=== PATIENT | male | born 1950 ===

== ENCOUNTER 2024-05-05 09:18 | Observation (INO) ==
--- NOTE | 2024-03-27 15:27 | PAT Medication Instructions ---
Medication Instructions Date of Service March 27, 2024 Home Medications Testosterone Injection See Rx Instructions .Route .COMPLEX Vitamin A + D3 + K2 1 cap PO DAILY acetaminophen 500 mg tablet 1,000 mg PO Q6H PRN Pain cyproheptadine 4 mg tablet 4 mg PO BID ibuprofen 200 mg tablet 600 mg PO Q6H PRN Pain magnesium glycinate 1 cap PO BID [id number]-[id number]-wwsfvt 5 mg-zeaxanth 1 mg-bilberry 7.5 mg-herbal capsule (Macular Health Formula) 1 cap PO DAILY omega 8-xft-thp-fish oil 1,200 mg (144 mg-216 mg) capsule (Fish Oil) 1 cap PO BID omeprazole 40 mg capsule,delayed release 40 mg PO DAILY vitamin E 1 cap PO DAILY MEDICATION INSTRUCTIONS: Continue as directed Testosterone Injection See Rx Instructions .Route .COMPLEX ASK your surgeon for instructions ibuprofen 200 mg tablet 600 mg PO Q6H PRN Pain STOP taking 2 weeks before surgery bruhyqur-rcv-[id number] 5 mg-zeaxanth 1 mg-bilberry 7.5 mg-herbal capsule (Macular Health Formula) 1 cap PO DAILY omega 6-hod-tew-fish oil 1,200 mg (144 mg-216 mg) capsule (Fish Oil) 1 cap PO BID vitamin E 1 cap PO DAILY DO NOT take the morning of surgery Vitamin A + D3 + K2 1 cap PO DAILY magnesium glycinate 1 cap PO BID cyproheptadine 4 mg tablet 4 mg PO BID Take morning of surgery With a small sip of water, OTHERWISE NOTHING TO EAT OR DRINK AFTER MIDNIGHT: omeprazole 40 mg capsule,delayed release 40 mg PO DAILY acetaminophen 500 mg tablet 1,000 mg PO Q6H PRN Pain Take evening before surgery magnesium glycinate 1 cap PO BID acetaminophen 500 mg tablet 1,000 mg PO Q6H PRN Pain cyproheptadine 4 mg tablet 4 mg PO BID Other Notes If you have any questions please call us at [phone] or [phone] or [phone] or [phone]
--- NOTE | 2024-04-07 13:24 | Anesthesiology Consultation ---
Date of Service April 07, 2024 Assessment & Plan (1) Encounter for pre-operative examination: - PCP advised that patient was seen this week but prior to having labs to review so would require he have another appointment for this. I discussed case in detail with Dr. Hancock who advised patient does not require clearance at all for surgery as he will lose some blood during procedure. Patient and surgeon's office made aware. - PCP office visit 04/08/24: "...feeling well...recognized the need for weight loss...increase testosterone to 400 mg every 3 weeks. Use CPAP nightly..." - polycythemia, patient states has not needed to undergo therapeutic phlebotomy for several years-denies currently/recently following with hematology. Awaiting PCP response to optimization form, Dr. Miah Bautista. Surgeon's office made aware. Patient made aware, he noted that in past this resolved with consistent CPAP use-he was without unit for several months after machine broke awaiting insurance approval-he denied questions or concerns-states he will fo llow-up with his PCP. - Outpatient joint assessment: Patient is currently scheduled for inpatient pathway. If re-evaluated and patient/surgeon requests outpatient pathway, patient is acceptable candidate for outpatient joint program from anesthesia standpoint pending surgeon's office assessment of pt motivation/support/completion of same day joint program preop requirements. Chart Review Chart Review: Acceptable Risk for Surgery and Patient seen in Pre Admission Testing Teaching & Discussion Pre-Anesthesia Teaching/Discussion Notes: Instructed NPO after midnight before surgery, except medications with 15 cc of water. Medication instructions provided according to the PAT guidelines. History Surgery Operation Date: 05/05/24 10:00 Proposed Procedures p Right Total Knee Arthroplasty - Andi Milligan DO Height/Weight Height: 5 ft 10.5 in Weight: 125.1 kg Allergies Allergy/AdvReac Type Severity Reaction Status Date / Time amoxicillin Allergy Intermediate Hives Verified 03/26/24 15:01 Medications Home Medications Medication Instructions Recorded Confirmed Last Taken Testosterone Injection See Rx Instructions .Route .COMPLEX 03/26/24 03/26/24 03/18/24 Vitamin A + D3 + K2 1 cap PO DAILY 03/26/24 03/26/24 Unknown acetaminophen 500 mg tablet 1,000 mg PO Q6H PRN Pain 03/26/24 03/26/24 Unknown cyproheptadine 4 mg tablet 4 mg PO BID 03/26/24 03/26/24 Unknown ibuprofen 200 mg tablet 600 mg PO Q6H PRN Pain 03/26/24 03/26/24 Unknown magnesium glycinate 1 cap PO BID 03/26/24 03/26/24 Unknown kbctmhbv-jex-mkfiym 5 mg-zeaxanth 1 cap PO DAILY 03/26/24 03/26/24 Unknown 1 mg-bilberry 7.5 mg-herbal capsule ([employer] Health Formula) omega 8-fui-dmu-fish oil 1,200 mg 1 cap PO BID 03/26/24 03/26/24 Unknown (144 mg-216 mg) capsule (Fish Oil) omeprazole 40 mg capsule,delayed 40 mg PO DAILY 03/26/24 03/26/24 Unknown release vitamin E 1 cap PO DAILY 03/26/24 03/26/24 Unknown famotidine 20 mg tablet 20 mg PO DAILY PRN reflux 04/07/24 04/07/24 Unknown Additional Notes: Patient was instructed he can continue famotidine prn. Past Medical History Medical History (Updated 04/07/24 @ 13:39 by Dian Pablo PA-C) Acid reflux controlled, stable per pt Frequent headaches chronic, allergy related per pt History of adverse reaction to anesthesia "Spiked my blood pressure" per pt was during a left knee arthroscopy, notes was prior to treatment for sleep apnea Hx of Lyme disease (~2003) completed antibiotic tx, residual effects: myalgias, leg weakness and intermittent headaches-denies change or worsening Osteoarthritis of right knee Polycythemia PONV (postoperative nausea and vomiting) denies needing scop patch, states does well with IV pre-dosing Sleep apnea CPAP - "currently broke and waiting for a new machine" Vertigo resolved with PT per patient Patient denies h/o stroke, seizures, heart attack, heart failure, DM, HTN, blood clots/DVTs or blood transfusions. Exercise / Class Metabolic Activity II 4-5 Yardwork/Stairs/Walk up hill (denies chest discomfort or shortnesss of breath with one flight of stairs) Past Surgical History Surgical History History of arthroscopy of left knee x2 Meniscus Tear History of carpal tunnel release of both wrists Hx of cataract extraction Bilateral Hx of cholecystectomy Hx of colonoscopy Hx of esophagogastroduodenoscopy Hx of hernia repair Hx of shoulder surgery Right - "Narrowing of the nerve channels" Hx of wisdom tooth extraction Past Anesthesia History No Family Hx of Anesthesia Complications History of PONV History of PONV (denies needing scop patch, does well with IV predosing) and Hx of Motion Sickness Social History Smoking Status: Never smoker Do You Dip or Chew Tobacco: No Hx Alcohol Use: No Hx Substance Use: No substance use type: does not use Review of Systems Patient denies chest pain, shortness of breath, dyspnea on exertion, fever, c hills, cough, wheezing, or palpitations. Physical Exam Vital Signs Vitals BP 137/85 P 81 TEMP 98.2 SP02 98% on RA RESP 18 Physical Patient resting comfortably in chair in no acute distress, alert and oriented, responding appropriately throughout visit Full cervical extension range of motion without pain TMD 3.5 finger breadths Mallampati Score 3 Dentition: several implants, denies chipped or loose teeth, caps/crowns, or bridges Lungs: normal respiratory effort. Good air movement, clear throughout to auscultation, no adventitious breath sounds Cardiac: regular rate and rhythm, no murmurs noted Carotid arteries: negative bruit bilat Lab Results Anesthesia Preop Results Results Anesthesia Widget: WBC 6.90 K/ul (4.8-10.8) 04/07/24 Hgb 18.1 g/dl (14.0-18.0) H 04/07/24 Hct 52.2 % (42.0-52.0) H 04/07/24 Plt 174 K/uL (130-400) 04/07/24 Na 137 mmol/L (136-145) 04/07/24 K 4.3 mmol/L (3.5-5.1) 04/07/24 Cl 100 mmol/L (98-107) 04/07/24 CO2 30 mmol/L (21-32) 04/07/24 BUN 16 mg/dl (6-23) 04/07/24 Creat 0.77 mg/dl (0.6-1.4) 04/07/24 Glucose Level 188 mg/dl (70-99(Fasting)) H 04/07/24 PT 10.3 Seconds (9.0-12.0) 04/07/24 PTT 28 Seconds (21-31) 04/07/24 INR 0.9 (0.9-1.1) 04/07/24 Blood Type O Positive 04/07/24 Antibody Screen NEGATIVE 04/07/24 Testing Electrocardiogram Date: 04/07/24 NSR, rate 73 bpm Chest X-Ray Date: 04/07/24 No acute cardiopulmonary abnormalities identified.
--- NOTE | 2024-05-01 07:56 | History & Physical Report ---
Date of Service May 01, 2024 Assessment & Plan (1) Osteoarthritis of right knee: We will proceed with a right total knee arthroplasty. Postoperatively he will be started on aspirin for DVT prophylaxis and kept overnight in the hospital for postop medical management. He plans to have the hospital set up home health for discharge. History of Present Illness Chief Complaint: Osteoarthritis of the right knee. Primary Care Provider: David Upton is a pleasant 73-year-old male who has been dealing with chronic increasing bilateral knee pain. 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 He saw another provider. He has x-rays and an MRI of his right knee. The x-rays did not look too bad, but the MRI did show some medial compartmental arthritis and a complex medial meniscus tear. After failed conservative treatment, he has elected to proceed with a right total knee arthroplasty. Allergies Allergy/AdvReac Type Severity Reaction Status Date / Time amoxicillin Allergy Intermediate Hives Verified 03/26/24 15:01 Home Medications Medication Instructions Recorded Confirmed Type Testosterone Injection See Rx Instructions .Route .COMPLEX 03/26/24 03/26/24 History Vitamin A + D3 + K2 1 cap PO DAILY 03/26/24 03/26/24 History acetaminophen 500 mg tablet 1,000 mg PO Q6H PRN Pain 03/26/24 03/26/24 History cyproheptadine 4 mg tablet 4 mg PO BID 03/26/24 03/26/24 History ibuprofen 200 mg tablet 600 mg PO Q6H PRN Pain 03/26/24 03/26/24 History magnesium glycinate 1 cap PO BID 03/26/24 03/26/24 History ygbsnasy-mlj-bekslo 5 mg-zeaxanth 1 cap PO DAILY 03/26/24 03/26/24 History 1 mg-bilberry 7.5 mg-herbal capsule (Macular Health Formula) omega 0-hxk-uvy-fish oil 1,200 mg 1 cap PO BID 03/26/24 03/26/24 History (144 mg-216 mg) capsule (Fish Oil) omeprazole 40 mg capsule,delayed 40 mg PO DAILY 03/26/24 03/26/24 History release vitamin E 1 cap PO DAILY 03/26/24 03/26/24 History famotidine 20 mg tablet 20 mg PO DAILY PRN reflux 04/07/24 04/07/24 History Past Med/Surg History Problem List Encounter for pre-operative examination Osteoarthritis of right knee Medical History Vertigo resolved with PT per patient Polycythemia History of adverse reaction to anesthesia "Spiked my blood pressure" per pt was during a left knee arthroscopy, notes was prior to treatment for sleep apnea PONV (postoperative nausea and vomiting) denies needing scop patch, states does well with IV pre-dosing Acid reflux controlled, stable per pt Hx of Lyme disease (~2003) completed antibiotic tx, residual effects: myalgias, leg weakness and intermittent headaches-denies change or worsening Frequent headaches chronic, allergy related per pt Sleep apnea CPAP - "currently broke and waiting for a new machine" Osteoarthritis of right knee Surgical History History of arthroscopy of left knee x2 Meniscus Tear History of carpal tunnel release of both wrists Hx of cataract extraction Bilateral Hx of wisdom tooth extraction Hx of shoulder surgery Right - "Narrowing of the nerve channels" Hx of cholecystectomy Hx of hernia repair Hx of esophagogastroduodenoscopy Hx of colonoscopy Social History Smoking Status: Never smoker Second Hand Exposure: No; Do You Dip or Chew Tobacco: No; Tobacco Cessation Education Requested by Patient: No Hx Alcohol Use: No Hx Substance Use: No Preferred Language: Italian Communication Ability: Effective Sales Ledger Clerk Required: No Beliefs That Will Affect Care: None Current Living Situation: Spouse Other Information That Helps Us Care for You: No Feels Safe at Home: Yes Safety Concerns: Feels Safe At This Time Assistive Devices: Cane, CPAP and Glasses Review of Systems All systems reviewed & are unremarkable except as noted in HPI & below. Physical Exam On physical exam of the right knee, he has good range of motion. He has pain of the distal medial femoral condyle and over the medial joint line. Constitutional WD/WN, vitals as above Eyes PERRL, conjunctivae normal, anicteric sclerae ENMT external ear and nose normal, oropharynx normal Neck trachea midline, no thyromegaly Respiratory normal respiratory effort Cardiovascular RRR, no murmur, no edema Gastrointestinal (Abdomen) normal bowel sounds, soft, nontender, no hepatosplenomegaly Psychiatric A+Ox3, euthymic affect Results & Data Results & Data Laboratory Results . Diagnostic Findings X-rays of the right knee show mild joint space narrowing. MRI of the right knee shows advanced medial compartmental arthritis and complex tearing of the medial meniscus.. . PG Care Time/CCT Total # of Minutes Spent Total Time Spent with Patient: Total time spent is greater than 50% in coordination of care (as documented) at patient's floor/unit and/or counseling patient: Coding Level of Care Code None Diagnoses Osteoarthritis of right knee M17.11
[~2024-05-05 09:18] MED LIST: ALLERGY Noted to ORDERED Medication SCH; ROPIVACAINE 0.5% 5 MG/ML 30 ML VIAL ONE; ceFAZolin 3000MG 3,000 MG/72.5 ML BAG IV SCH
[2024-05-05] MEDS: ACETAMINOPHEN 500 MG TAB PO SCH ×2 (10:26→21:36)
[2024-05-05] MEDS: GABAPENTIN 300 MG CAP PO SCH (10:27)
[2024-05-05] MEDS: FAMOTIDINE 20 MG TAB PO SCH (10:27)
[2024-05-05] MEDS: LR 60ML/HR IV SCH (10:48)
[2024-05-05] MEDS: dexAMETHasone**PF** 10 MG/ML VIAL IV SCH (10:48)
[2024-05-05] MEDS: LR 500ML BOLUS, THEN 15ML/HR IV SCH (10:48)
[2024-05-05] MEDS ORDERED: LIDOCAINE 2% 2 ML VIAL/AMP(20MG/ML) INFIL ONE (11:14)
[2024-05-05] MEDS ORDERED: PROPOFOL IV EMULSION 10 MG/ML 20 ML VIAL IV ONE (11:14)
[2024-05-05] MEDS ORDERED: MIDAZOLAM HCL 1 MG/ML 2ML VIAL ONE (11:15)
[2024-05-05] MEDS ORDERED: fentaNYL citrate PF 100 MCG/2 ML VIAL ONE (11:15)
--- NOTE | 2024-05-05 11:48 | History & Physical Bridge Note ---
Date of Service May 05, 2024 History & Physical Bridge Note I have examined the patient, reviewed the History & Physical and in the interval since the performance of the History & Physical I have noted the following changes of clinical significance: no changes noted
[2024-05-05] MEDS ORDERED: Nursing to Pharmacy Communication ONE (11:55)
[2024-05-05] MEDS ORDERED: KETOROLAC 30 MG/ML VIAL IV PRN (12:32)
[2024-05-05] MEDS ORDERED: HYDROmorphone INJ 1 MG/ML SYRINGE IV PRN (12:32)
[2024-05-05] MEDS ORDERED: ATROPINE SULFATE 0.1 MG/ML 10ML SYR IV PRN (12:32)
[2024-05-05] MEDS ORDERED: ePHEDrine sulfate 50 MG/ML AMP IV PRN (12:32)
[2024-05-05] MEDS ORDERED: ONDANSETRON INJ 2 MG/ML 2 ML VIAL IV PRN ×2 (12:32→15:58)
[2024-05-05] MEDS: TRANEXAMIC ACID 1,000 MG **IV Pre-op IV SCH (12:39)
[2024-05-05] MEDS: ceFAZolin 3000MG 3,000 MG/72.5 ML BAG IV SCH (12:54)
--- OUTSIDE RECORDS SUMMARY | 2024-05-05 12:55 | External Medical Summary | Summary of Care ---
Author Name Unknown Organization [facility] Address [address] [place] [address] Phone [phone] Care Team Providers Care [employer] Concierge Name Role Phone David Hand MD Primary Care Provider Reason for Visit * Reason Comments Syncope * Auth/Cert Specialty Diagnoses / Procedures Referred By Contac t Referred To Contact [facility] [address] [place] [address] Phone: [phone] [facility] ([facility]) [address] [place] [id number] Phone: tel: fax: Referral ID Status Reason Start Date Expiration Date Visits Re quested Visits Authorized [id number] Encounter Details Date Type Department Care Team (Late st Contact Info) Description 04/19/2024 5:53 PM EST - 04/19/2024 9:08 PM EST Emergency [facility] Emergency [facility] ([facility]) [address] [place] [id number] David Ch MD [address] [place] [address] Vasovagal syncope (Primary Dx); Screening for cardiovascular condition; New onset type 2 diabetes mellitus (HCC) Discharge Disposition: Home - Self Care Allergies Active Allergy Reactions Criticality Noted Date Comments Amoxicillin Rash 04/09/2018 Itching Bee Pollen Other (Please comment) 07/25/2018 Swelling of tongue, has EPIPEN Cat Dander 07/08/2009 Runny nose, itchy eyes Dust 07/08/2009 Runny nose. Eye itch's Levofloxacin Rash 04/09/2018 Mold 07/08/2009 Runny nose, itchy eyes documented as of this encounter (statuses as of 04/20/2024) Medications FREDY-D 12 HOUR 60-120 MG PO TB12 daily Active EPINEPHrine, anaphylaxis, (EPI-PEN) 0.3 MG/0.3ML SOAJ injection Inject 0.3 mg into a large muscle as needed for Anaphylaxis. 018 Active testosterone cypionate (DEPOTESTOSTE LEN CYPIONATE) 200 MG/ML injection INJECT 1ML INTRAMUSCULARLY EVERy 2 WEEKS 10 mL 019 Active Colestipol HCl 1 g Tablet TAKE TWO TABLETS BY MOUTH FOUR TIMES DAILY NEEDED FOR DIARRHEA 120 Tab 2 Active Aspirin (CHRISTINA ASPIRIN) 325 MG TBEC Take by mouth. Activ e fluticasone (FLONASE) 50 MCG/ACT nasal spray SPRAY 1 SPRAY INTRANASALLY 1 2 TIMES PER DAY IN EACH NOSTRIL Active Meloxicam 15 MG Tablet Active raNITIdine HCl 300 MG Tablet Take 1 Tab by mouth every evening. 90 Tab 2 020 Active metFORMIN HCl 500 MG Oral Tablet (Glucophage) Take 1 Tablet by mouth 2 times a day with morning and evening meals. Do not start before April 21, 2024. 30 Tablet Active metFORMIN HCl 500 MG Oral Tablet (Glucophage) Take 1 Tablet by mouth 2 times a day with morning and evening meals. 30 Tablet 024 2023 Discontinued Hospital, Clinic, or Other Facility Administered Medication Ordered Dose Route Frequency Start Date End Date Status testosterone cypionate (DEPOTESTOSTERONE CYPIONATE) 200 MG/ML inj 200 mgIndications:Testicular hypofunction 200 mg IM [id number] 12/18/2017 Active testosterone cypionate (DEPOTESTOSTERONE CYPIONATE) 200 MG/ML inj 200 mgIndications:Hypogonadism in male 200 mg IM [id number] 12/25/2017 Active documented as of this encounter (statuses as of 04/20/2024) Active Problems Problem Noted Date Diagnosed Date Osteoarthritis 12/12/2017 Hypogonadism in male 11/13/2017 Esophageal reflux 07/08/2009 Dyslipidemia, goal to be determined 07/08/2009 documented as of this encounter (statuses as of 04/20/2024) Resolved Problems Problem Noted Date Diagnosed Date Resolved Date B12 deficiency 11/13/2017 11/13/2017 Allergic rhinitis 07/08/2009 06/18/2018 documented as of this encounter (statuses as of 04/20/2024) Immunizations Name Administration Dates Next Due Pneumococcal Conjugate Vacc, 13 Valent (Prevnar) 03/13/2016 Pneumococcal Polysaccharide PPV23 (Pneumovax) 12/12/2017 Seasonal Influenza, PF, 6 M & above, IM , (FluLaval or Fluzone) 02/12/2018,03/13/2016 Seasonal Influenza, Quadriva lent, No Preserve, IM 02/03/2015,03/09/2014,03/12/2012,02/25,02/26/2007 TDAP (age 10 and older)(Boostrix) 12/12/2017 documented as of this encounter Social History Tobacco Use Types Packs/Day Years Used Date Smoking Tobacco: Never Smokeless Tobacco: Never Alcohol Use Standard Drinks/Week Comments No 0 (1 standard drink = 0.6 oz pur e alcohol) PHQ-2 Answer Date Recorded PHQ-2 Score -1 06/18/2018 Sex and Gender Information Value Date Recorded Sex Assigned at Not on file Legal Sex Male 5:43 AM EST Gender Identity Not on file Sexual Orientation Not on file documented as of this encounter Last Filed Vital Signs Vital Sign Reading Time Taken Comments Blood Pressure 158/74 04/19/2024 9:00 PM EST Pulse 74 04/19/2024 9:00 PM EST Temperature 35.6 C (96.1 F) 04/19/2024 5:52 PM ES T Respiratory Rate 13 04/19/2024 9:00 PM EST Oxygen Saturation 93% 04/19/2024 9:00 PM EST Inhaled Oxygen Concentration - - Weight - - Height - - Body Mass Index - - documented in this encounter Discharge Instructions * Discharge Instructions* Kathie Pena, DO - 04/19/2024 9:03 PM EST Do not start the metformin until 04/21/2024 because of the contrast received today for the CT scan.Keep yourself well hydrated. Eat smaller more frequent meals to avoid sudden highs/lows in blood sugar. Seek medical attention if you experience chest pain, irregular heart beat, persistent vomiting,or fainting. documented in this encounter ED Notes * Kimberlee Hutchins RN - 04/19/2024 5:57 PM EST Pt states that he had two syncopal episodes today, the last one being at the dinner table. Pt reports that during one of the syncopal episodes, he fell and hit his head. Pt c/o severe nausea currently and vertigo earlier today. documented in this encounter Miscellaneous Notes * Pt Handout (on AVS) - Kathie Pena DO - 04/19/2024 9:00 PM EST Images from the original note were not included. [id number] Diagnosing Syncope Syncope is when you suddenly faint or pass out (lose consciousness). It's caused by not getting enough blood flow to the brain. Syncope can have many causes. Some of them aren't serious, but others may be life-threatening. Your healthcare provider will ask you about your fainting episode and your past health. They'll also do an exam. You may need a number of tests to assess your symptoms. Health history and exam You may be asked about: Where and when you fainted How long you weren't awake and aware (unconscious) How you felt just before and right after you fainted How you feel when you do moderate to heavy exercise If you have a family history of heart disease or fainting If you have a heart or neurological problem What medicines you're taking If you drink alcohol If you use illegal drugs Your healthcare provider will examine you and may: Check your blood pressure while lying down, sitting, and standing Listen for any heart murmurs or abnormal heartbeats Listen and feel the pulses in your neck Examine your eyes, reflexes, and limb movement Tests Holter monitor You may need one of more of the following tests: Electrocardiogram (ECG). This test can help find a slow, fast, or irregular heartbeat. Holter monitoring. You wear a portable ECG monitor for 24 to 48 hours. It records your heartbeatand looks for any problems. Event monitoring. You wear a portable ECG monitor for several weeks. Like a Holter monitor, it records your heartbeat and looks for any problems. Implantable loop recorder. This is a small heart monitor that's inserted over the heart under the skin. It's used for long-term heart rhythm recordings, usually up to 3 to 4 years. Echocardiogram. This test takes pictures of your heart with ultrasound. It can show heart valve or heart function problems. It can also show damage from a heart attack. Electrophysiology studies (EPS). These help find weak, damaged, or overactive electrical pathways that make your heart beat too fast or slow. They can find the cause of a heart rate or rhythm problem. They can also help your healthcare provider decide how to treat it. Tilt table testing. This testing helps show if changes in your body position affect your heart rate and blood pressure. Carotid artery ultrasound. This test shows the blood flow through the arteries in the neck that supply oxygen and circulation to your brain. It can find any blockages in these arteries. MRI or CT scan of the neck and brain. These tests see if there is something else going on in the brain that is causing a loss of consciousness. They scan the blood flow and brain structures. Theyare done in a radiology department. Blood and other lab tests. These tests are used to find any problems in your body that may causesyncope. For example, low blood sugar can cause a loss of consciousness. It may be mistaken for syncope. Other wastes and toxins, and even dehydration, can affect brain function and consciousness. Electroencephalogram (EEG). If your healthcare provider thinks you may be having seizures instead of syncope, this test may be done. Electrodes are put on your scalp. They measure the activity of the brain. A neurologist who specializes in reading EEGs studies the results. You may need to see other specialists to fully assess the cause of your syncope. For instance, you may see a paper reclaiming machine operator or a neurologist.. Treatment will be based on the cause of your syncope. Ask your healthcare provider how you'll get the test results and what steps must be taken. One of the concerns with syncope is being injured if you faint. Finding a cause for syncope can help keep you safe from injury. Don't drive a car, use heavy machinery, or do activities that may result in injury if you were to faint. Ask your provider when it's safe to do these activities again. Last Reviewed Date: 2023 00:00:00 9698-6165 [employer]. All rights reserved. This information is not intended as a substitute for professional medical care. Always follow your healthcare professional's instructions. * Pt Handout (on AVS) - Kathie Pena DO - 04/19/2024 9:00 PM EST Images from the original note were not included. [id number] Managing Type 2 Diabetes Type 2 diabetes is a long-term (chronic) condition. Managing it may mean making some tough changes.Your healthcare team can help you. You'll need to balance your medicine with diet and activity. This will help you manage your type 2 diabetes. You will also need to check your blood sugar often. And work with your healthcare providerto prevent complications. Ask your team about a service called diabetes self-management education and support (DSMES). You will learn skills to help you better manage your diabetes and find support when you need it. This service may be given in a group setting or one-on-one with your team. It may also be available via telehealth. Take your medicine You may take pills or give yourself insulin shots for diabetes. Or you may use both. Take your medicines or give yourself insulin at the right times, This will help you control your blood sugar. Think about ways that will help you remember to take your medicines the right way every day. Ask your healthcare provider or team for ideas. You may only take pills for your diabetes now. But this may change. Over time, most people with type 2 diabetes also need insulin or other injections. Eat healthy A healthy diet helps control the amount of sugar in your blood. It also helps you stay at a healthyweight. Or it helps you lose weight, if you're overweight. Extra weight makes it harder to control diabetes. Your healthcare team will help you create a plan that works for you. You don't have to give up all the foods you like. Have meals and snacks with: Vegetables Fruits Lean meats or other healthy proteins Whole grains Low-fat or nonfat dairy products Replace sugary drinks (including fruit juice) with water or low-calorie, no calorie drinks wheneverpossible. Don't have foods with added sugar. Be physically active Being active helps lower your blood sugar. Activity helps your body use insulin to turn food into energy. It also helps you manage your weight: Ask your healthcare provider to help you to make an activity program that's right for you. Your program is based on your age, general health, and types of activity you enjoy. Start off slowly. But try to aim for at least 150 minutes of exercise or activity each week. Start with 30 minutes a day. Exercise in 10- minute blocks. Don?t let more than 2 days go by without being active. Check your blood sugar A regular part of your care may be to check your own blood sugar. Or you may only need to check your blood sugar from time to time. Your healthcare provider will tell you how to check your blood sugar at home. Checking it tells you if your blood sugar is in your target range. Having your blood sugars within the target range means that you are managing your diabetes well. If your blood sugar levels are too high or too low, your healthcare provider may suggest changes toyour diet or activity level. They may also adjust your medicine. Your healthcare provider may also tell you to check your blood sugar more often when you are sick. Take care of yourself When you have diabetes, you may be more likely to get other health problems. They include foot, eye, heart, nerve, and kidney problems. You can help prevent these problems by controlling your blood sugar. And by taking good care of yourself. Your healthcare provider, nurse, peer educator, and others can help you with the following: Checkups. You should have regular checkups with your healthcare provider. At those visits, you will have a physical exam that includes checking your feet. Your healthcare provider will also check your blood pressure and weight. Take your shoes off before your appointment starts to be sure your feet are checked. Be sure to bring the records of your blood sugar tests. Ask your healthcare providers if there are new or better ways to check on your blood sugars. Other exams. You'll also need eye, foot, and dental exams at least once each year or as advised. Lab tests. You will have blood and urine tests: o Your healthcare provider will check your hemoglobin A1C at least twice a year. This blood test shows how well you have been controlling your blood sugar over 2 to 3 months. The results help your healthcare provider manage your diabetes. o You will also have other lab tests. For example, to check for kidney problems and abnormal cholesterol levels. Smoking. If you smoke, you will need to quit. Smoking makes it more likely you will get complications from diabetes. Ask your healthcare provider about ways to quit. Also don't use e-cigarette, orvaping products. Vaccines. Get a yearly flu shot. And ask your healthcare provider about vaccines to prevent pneumonia, shingles, COVID-19, RSV, and hepatitis B. Stress and depression Most people have challenges throughout their lives. Living with diabetes can increase your stress. Feeling stressed or depressed can actually affect your blood sugar levels. Tell your healthcare provider if you are having trouble coping with diabetes. They can help or refer you to other healthcare providers or programs. To learn more Know where you can get help. You can try the following: Support. Ask family and friends to support your efforts to take care of yourself. Or look for a diabetes support group nearby or on the internet. Check the Community Overview link at diabetes.org/get-involved/community Counseling. Talk with a social media marketer, psychologist, psychiatrist, or other counselor. Information. Contact the [place] [employer] at www.diabetes.org or 127-961-8563. Another good source is the Association of Diabetes Care and Education Specialists at www.diabeteseducator.org/fgsxpj-qpux-mkavhmsz. Last Reviewed Date: 2021 00:00:00 2212-6141 [employer]. All rights reserved. This information is not intended as a substitute for professional medical care. Always follow your healthcare professional's instructions. documented in this encounter Plan of Treatment Pending Results Name Type Priority Associated Diagnoses Date /Time HEMOGLOBIN A1C Lab Add-on 04/19/2024 6:02 PM EST Scheduled Orders Name Type Priority Associated Diagnoses Orde r Schedule EKG EKG STAT Screening for cardiovascular condition Perform Now for 1 Occurrences starting 04/19/2024 until 04/19/2024 HEMOGLOBIN A1C Lab Add-on Perform No w for 1 Occurrences starting 04/19/2024 until 04/19/2024 Health Maintenance Due Date Last Done Comments Hepatitis C Screening 1969 Fecal Occult Blood Test 1996 Sigmoidoscopy 1996 Zoster Vaccines (1 of 2) 2001 Depression Screening 06/18/2019 06/18/2018 COVID-19 Vaccine ( season) 2023 Influenza Vaccine (FLU shot) (#1) 2023 02/12/2018, 03/13/2016, 02/03/2015, Additional history exists Lipid Panel 08/20/2026 08/20/2021, 11/2019, 12/06/2017 Cologuard 02/04/2027 02/05/2024, 11/2023, 01/29/2020 DTap/Tdap Vaccines (2 - Td or Tdap) 12/13/2027 12/12/2017 Colonoscopy 07/25/2028 07/25/2018 Colorectal Cancer Screening 07/25/2028 Pneumococcal Vaccine: 50+ Years Completed 12/12/2017, 03/13/2016 HPV (Gardasil) Vaccine Aged Out No lo nger eligible based on patient's age to complete this topic Hepatitis B Vaccine Aged Out No longe r eligible based on patient's age to complete this topic MENINGOCOCCAL (MENACTRA/MENVEO) Aged Out No longer eligible based on patient's age to complete this topic documented as of this encounter Medical Devices Not on filedocumented as of this encounter Procedures Procedure Name Priority Date/Time Associated Diagnosis Comments GLUCOSE METER, POINT OF CARE WALLY 04/19/2024 8:[address] PULMONARY EMBOLUS W CONTRAST STAT 04/19/2024 7:02 PM EST URINALYSIS, REFLEX TO CULTURE STAT 04/19/2024 6:39 PM EST URINALYSIS, REFLEX TO CULTURE (CUP ONLY) STAT 04/19/2024 6:39 PM EST URINALYSIS, REFLEX TO CULTURE (NOT FOR NEUTROPENIC PATIENTS) STAT 04/19/2024 6:[address] HEAD/BRAIN WO CONTRAST STAT 04/19/2024 6:29 PM EST XR CHEST 1 VIEW STAT 04/19/2024 6:29 PM EST RESPIRATORY PATHOGEN PANEL, PCR STAT 04/19/2024 6:04 PM EST LACTATE, WHOLE BLOOD WITH REFLEX IF ABNORMAL STAT 04/19/2024 6:02 PM EST DIFFERENTIAL, AUTOMATED STAT 04/19/2024 6:02 PM EST TROPONIN T, HIGH SENSITIVITY STAT 04/19/2024 6:02 PM EST BLOOD GAS, VENOUS STAT 04/19/2024 6:0 2 PM EST BNP (NT-PROBNP) STAT 04/19/2024 6:02 PM EST COMPREHENSIVE METABOLIC PANEL STAT 04/19/2024 6:02 PM EST CBC STAT 04/19/2024 6:02 PM EST PT INR STAT 04/19/2024 6:02 PM EST LIPASE STAT 04/19/2024 6:02 PM EST CBC STAT 04/19/2024 6:02 PM EST TSH STAT 04/19/2024 6:02 PM EST GLUCOSE METER, POINT OF CARE WALLY 04/19/2024 5:56 PM EST documented in this encounter Results * (ABNORMAL) GLUCOSE METER, POINT OF CARE (04/19/2024 8:24 PM EST) GLUCOSE - POCT 268(H) 70 - 120 mg/dL 04/19/2024 8:31 PM EST LABORATORY [facility] Blood Whole blood specimen / Unknown 04/19/2024 8:24 PM EST 04/19/2024 8:31 PM EST David Ch MD LAB POINT OF CAR E TEST DOCKED DEVICE UNSOLICITED RESULTS Final Result [facility]AT[facility] [id number] [place] [address] * CT PULMONARY EMBOLUS W CONTRAST (04/19/2024 7:02 PM EST) Anatomical Region Laterality Modality Chest, Cardio, Body Computed Greg ography 04/19/2024 6:50 PM EST Impressions 04/19/2024 8:14 PM EST IMPRESSION: 1. No pulmonary emboli are seen. 2. Incidental findings as described. THIS DOCUMENT HAS BEEN ELECTRONICALLY SIGNED BY JANNET MOORE MD Narrative 04/19/2024 8:14 PM EST PROCEDURE INFORMATION: Exam: CTA Chest With Contrast Exam date and time: 04/19/2024 6:50 PM Age: 74 years old Clinical indication: Shortness of breath; Additional info: Syncope, SOB; Pulmonary embolism; Wells score < 2; D-dimer not done; Perc positive (score >= 1) TECHNIQUE: Imaging protocol: Computed tomographic angiography of the chest with contrast. Exam focused on the arteries. 3D rendering (Not supervised by radiologist): MIP and/or 3D reconstructed images were created by the technologist. Radiation optimization: All CT scans at this facility use at least one of these dose optimization techniques: automated exposure control; mA and/or kV adjustment per patient size (includes targeted exams where dose is matched to clinical indication); or iterative reconstruction. Contrast material: ISOVUE 370; Contrast volume: 80 ml; Contrast route: INTRAVENOUS (IV); COMPARISON: DX XR CHEST 1 VIEW 04/19/2024 6:21 PM FINDINGS: Pulmonary arteries: No pulmonary emboli. Aorta: No aortic aneurysm. No aortic dissection. Lungs: Scattered microatelectasis. No airspace consolidation. Pleural spaces: No pneumothorax. No pleural effusion. Heart: No cardiomegaly. No pericardial effusion. Lymph nodes: No enlarged lymph nodes. Liver: The visualized liver is fatty. Gallbladder and biliary ducts: Cholecystectomy. Bones/joints: Chronic bony changes with no acute fracture. Mild thoracic spondylosis and partial ankylosis. Soft tissues: No suspicious lesions. Procedure Note Jannet Moore MD - 04/19/2024 PROCEDURE INFORMATION: Exam: CTA Chest With Contrast Exam date and time: 04/19/2024 6:50 PM Age: 74 years old Clinical indication: Shortness of breath; Additional info: Syncope, SOB; Pulmonary embolism; Wells score < 2; D-dimer not done; Perc positive(score >= 1) TECHNIQUE: Imaging protocol: Computed tomographic angiography of the chest withcontrast. Exam focused on the arteries. 3D rendering (Not supervised by radiologist): MIP and/or 3D reconstructed images were created by the technologist. Radiation optimization: All CT scans at this facility use at least one ofthese dose optimization techniques: automated exposure control; mA and/or kV adjustment per patient size (includes targeted exams where dose is matchedto clinical indication); or iterative reconstruction. Contrast material: ISOVUE 370; Contrast volume: 80 ml; Contrast route: INTRAVENOUS (IV); COMPARISON: DX XR CHEST 1 VIEW 04/19/2024 6:21 PM FINDINGS: Pulmonary arteries: No pulmonary emboli. Aorta: No aortic aneurysm. No aortic dissection. Lungs: Scattered microatelectasis. No airspace consolidation. Pleural spaces: No pneumothorax. No pleural effusion. Heart: No cardiomegaly. No pericardial effusion. Lymph nodes: No enlarged lymph nodes. Liver: The visualized liver is fatty. Gallbladder and biliary ducts: Cholecystectomy. Bones/joints: Chronic bony changes with no acute fracture. Mild thoracic spondylosis and partial ankylosis. Soft tissues: No suspicious lesions. IMPRESSION IMPRESSION: 1. No pulmonary emboli are seen. 2. Incidental findings as described. THIS DOCUMENT HAS BEEN ELECTRONICALLY SIGNED BY JANNET MOORE MD us David Ch MD RAD CT Final Re sult * (ABNORMAL) URINALYSIS, REFLEX TO CULTURE (04/19/2024 6:39 PM EST) Color, Urine Yellow Light Yellow, Yellow, Dark Yellow 04/19/2024 6:58 PM EST LAB[facility]ATORY [facility] Clarity, Urine Clear Clear 04/19/2024 6:58 PM EST LABORATORY [facility] Glucose, Urine >=1000(A) Negative mg/dL 04/19/2024 6:58 PM EST LAB[facility]AT[facility] Bilirubin, Urine Negative Negative 04/19/2024 6:58 PM EST [facility] Ketone, Urine Trace(A) Negative mg/dL 04/19/2024 6:58 PM EST LAB[facility]ATORY [facility] Specific [place], Urine 1.029 1.003 - 1.030 04/19/2024 6:58 PM EST LAB[facility] Blood, Urine Negative Negative 04/19/2024 6:58 PM EST LAB[facility]ATORY [facility] pH, Urine 7.0 5.0 - 7.5 Units 04/19/2024 6:58 PM EST LABORATORY [facility] Protein, Urine 100(A) Negative mg/dL 04/19/2024 6:58 PM EST LAB[facility]AT[facility] Urobilinogen, Urine 0.2 0.2, 1.0 mg/dL 04/19/2024 6:58 PM EST LAB[facility]AT[facility] Nitrite, Urine Negative Negative 04/19/2024 6:58 PM EST LABORATORY [facility] Esterase, Urine Negative Negative 04/19/2024 6:58 PM EST LAB[facility]ATORY [facility] RBC, Urine 0-2 0 - 2 /HPF 04/19/2024 6:58 PM EST LABORATORY [facility] WBC, Urine 0-2 0 - 2 /HPF 04/19/2024 6:58 PM EST LAB[facility]ATORY [facility] Bacteria, Urine 0-25 0 - 25 /HPF 04/19/2024 6:58 PM EST LAB[facility]ATORY [facility] Culture, Urine 04/19/2024 6:58 PM EST LAB[facility]AT[facility] Comment:Culture not indicate d by urinalysis results Urine Urine specimen obtained by clean catch procedure / Unknown Non-blood Collection / Unknown 04/19/2024 6:39 PM EST 04/19/2024 6:46 PM EST us David Ch MD LAB URINE ORDERABLES Fin al Result [facility] [place] [place] [id number] [place] [address] * URINALYSIS, REFLEX TO CULTURE (CUP ONLY) (04/19/2024 6:39 PM EST) Urinalysis, Reflex to Culture Specimen Specimen collected and received 04/19/2024 6:48 PM EST LAB[facility]ATORY [facility] Urine Urine specimen obtained by clean catch procedure / Unknown Non-blood Collection / Unknown 04/19/2024 6:39 PM EST 04/19/2024 6:46 PM EST David Ch MD LAB URINE ORDERABLES Fin al Result LABORATORY [place] [id number] [place] [address] * CT HEAD/BRAIN WO CONTRAST (04/19/2024 6:29 PM EST) Anatomical Region Laterality Modality Head Computed Tomogra phy 04/19/2024 6:17 PM EST Impressions 04/19/2024 7:42 PM EST IMPRESSION: Normal head CT. THIS DOCUMENT HAS BEEN ELECTRONICALLY SIGNED BY ARSENIO DOHERTY MD Narrative 04/19/2024 7:42 PM EST PROCEDURE INFORMATION: Exam: CT Head Without Contrast Exam date and time: 04/19/2024 6:17 PM Age: 74 years old Clinical indication: Syncope and collapse; Additional info: Syncope, hit head TECHNIQUE: Imaging protocol: Computed tomography of the head without contrast. Radiation optimization: All CT scans at this facility use at least one of these dose optimization techniques: automated exposure control; mA and/or kV adjustment per patient size (includes targeted exams where dose is matched to clinical indication); or iterative reconstruction. COMPARISON: No relevant prior studies available. FINDINGS: Brain: Normal. No intraxial or extraaxial hemorrhage. No infarct visible at this time. Unremarkable white matter. No mass effect. No significant involutional change. Cerebral ventricles: Normal. No ventriculomegaly or midline shift. Pituitary gland and sella: Normal. No enlargement. Paranasal sinuses: Visualized sinuses are unremarkable. No fluid levels or mucosal thickening. Mastoid air cells: Visualized mastoid air cells are well aerated. Bones: Unremarkable. No acute fracture. Soft tissues: Unremarkable. Vasculature: No significant atherosclerotic calcification. Procedure Note Arsenio Doherty MD - 04/19/2024 PROCEDURE INFORMATION: Exam: CT Head Without Contrast Exam date and time: 04/19/2024 6:17 PM Age: 74 years old Clinical indication: Syncope and collapse; Additional info: Syncope, hithead TECHNIQUE: Imaging protocol: Computed tomography of the head without contrast. Radiation optimization: All CT scans at this facility use at least one ofthese dose optimization techniques: automated exposure control; mA and/or kV adjustment per patient size (includes targeted exams where dose is matchedto clinical indication); or iterative reconstruction. COMPARISON: No relevant prior studies available. FINDINGS: Brain: Normal. No intraxial or extraaxial hemorrhage. No infarct visibleat this time. Unremarkable white matter. No mass effect. No significant involutional change. Cerebral ventricles: Normal. No ventriculomegaly or midline shift. Pituitary gland and sella: Normal. No enlargement. Paranasal sinuses: Visualized sinuses are unremarkable. No fluid levels or mucosal thickening. Mastoid air cells: Visualized mastoid air cells are well aerated. Bones: Unremarkable. No acute fracture. Soft tissues: Unremarkable. Vasculature: No significant atherosclerotic calcification. IMPRESSION IMPRESSION: Normal head CT. THIS DOCUMENT HAS BEEN ELECTRONICALLY SIGNED BY ARSENIO DOHERTY MD us David Ch MD RAD CT Final Re sult * XR CHEST 1 VIEW (04/19/2024 6:29 PM EST) Anatomical Region Laterality Modality Chest Computed Radiogr aphy 04/19/2024 6:21 PM EST Impressions 04/19/2024 8:11 PM EST IMPRESSION: Poor assessment of the left lung base on this portable view, favor technique related; otherwise lungs are clear. A lateral view of the chest could help to assess the left lung base if clinically indicated. THIS DOCUMENT HAS BEEN ELECTRONICALLY SIGNED BY JANNET MOORE MD Narrative 04/19/2024 8:11 PM EST PROCEDURE INFORMATION: Exam: XR Chest Exam date and time: 04/19/2024 6:21 PM Age: 74 years old Clinical indication: Other: Weakness; Additional info: Weakness, syncope TECHNIQUE: Imaging protocol: Radiologic exam of the chest. Views: 1 view. COMPARISON: DX XR RIBS UNILATERAL 2 VIEWS 01/22/2024 12:16 PM FINDINGS: Lungs: Poor assessment of the left lung base on this portable view; otherwise lungs are clear. Pleural spaces: No pleural effusion. No pneumothorax. Heart/Mediastinum: The cardiac silhouette is upper limits of normal. Bones/joints: No acute fracture. Procedure Note Jannet Moore MD - 04/19/2024 PROCEDURE INFORMATION: Exam: XR Chest Exam date and time: 04/19/2024 6:21 PM Age: 74 years old Clinical indication: Other: Weakness; Additional info: Weakness, syncope TECHNIQUE: Imaging protocol: Radiologic exam of the chest. Views: 1 view. COMPARISON: DX XR RIBS UNILATERAL 2 VIEWS 01/22/2024 12:16 PM FINDINGS: Lungs: Poor assessment of the left lung base on this portable view;otherwise lungs are clear. Pleural spaces: No pleural effusion. No pneumothorax. Heart/Mediastinum: The cardiac silhouette is upper limits of normal. Bones/joints: No acute fracture. IMPRESSION IMPRESSION: Poor assessment of the left lung base on this portable view, favortechnique related; otherwise lungs are clear. A lateral view of the chest could help to assess the left lung base if clinically indicated. THIS DOCUMENT HAS BEEN ELECTRONICALLY SIGNED BY JANNET MOORE MD David Ch MD RADIOLOGY ([facility]) Final Result * RESPIRATORY PATHOGEN PANEL, PCR (04/19/2024 6:04 PM EST) Adenovirus by PCR Negative Negative 024 7:02 PM EST LAB[facility] Coronavirus 229E by PCR Negative Negative 04/19/2024 7:02 PM EST [facility] Coronavirus HKU1 by PCR Negative Negative 04/19/2024 7:02 PM EST [facility] Coronavirus NL63 by PCR Negative Negative 04/19/2024 7:02 PM EST [facility] Coronavirus OC43 by PCR Negative Negative 04/19/2024 7:02 PM EST [facility] Coronavirus SARS-CoV-2 by PCR Negative Negative 04/19/2024 7:02 PM EST [facility] Human Metapneumovirus by PCR Negative Negative 04/19/2024 7:02 PM EST [facility] Rhinovirus/Enterovi lucina by PCR Negative Negative 04/19/2024 7:02 PM EST [facility] Influenza A Virus by PCR Negative Negative 04/19/2024 7:02 PM EST [facility] Influenza B Virus by PCR Negative Negative 04/19/2024 7:02 PM EST [facility] Parainfluenza Virus 1 by PCR Negative Negative 04/19/2024 7:02 PM EST [facility] Parainfluenza Virus 2 by PCR Negative Negative 04/19/2024 7:02 PM EST [facility] Parainfluenza Virus 3 by PCR Negative Negative 04/19/2024 7:02 PM EST [facility] Parainfluenza Virus 4 by PCR Negative Negative 04/19/2024 7:02 PM EST [facility] Respiratory Syncytial Virus by PCR Negative Negative 04/19/2024 7:02 PM EST [facility] Bordetella pertussis by PCR Negative Negative 04/19/2024 7:02 PM EST [facility] Chlamydia pneumoniae by PCR Negative Negative 04/19/2024 7:02 PM EST [facility] Mycoplasma pneumoniae by PCR Negative Negative 04/19/2024 7:02 PM EST [facility] Bordetella parapertussis by PCR Negative Negative 04/19/2024 7:02 PM EST [facility] Comment: The primers that detect Rhinovirus may cross react with some Enterorviruses. The validation of bronchial specimens, tracheal aspirates, and throats for this assay was developed and performance characteristics determined by [employer]. The validation of alternate specimen types has not been cleared or approved by the U.S. Food and Drug Administration (FDA). It has been determined that such clearance or approval is not necessary. Upper Respiratory Mid-turbinate nasal swab / Unknown Non-blood Collection / Unknown 04/19/2024 6:04 PM EST 04/19/2024 6:10 PM EST us David Ch MD LAB MICRO - GENERAL PHUONG COHEN Final Result LABORATORY [place] [id number] [place] [address] * DIFFERENTIAL, AUTOMATED (04/19/2024 6:02 PM EST) WBC 7.36 4.00 - 10.80 K/uL 04/19/2024 6:14 PM EST [facility] Neutrophils % 57.4 40.0 - 75.0 % 04/19/2024 6:14 PM EST [facility] Lymphocytes % 33.2 18.0 - 42.0 % 04/19/2024 6:14 PM EST [facility] Monocytes % 7.3 1.0 - 11.0 % 04/19/2024 6:14 PM EST [facility] Eosinophils % 1.8 0.0 - 6.0 % 04/19/2024 6:14 PM EST [facility] Basophils % 0.3 0.0 - 2.0 % 04/19/2024 6:14 PM EST [facility] Absolute Neutrophils 4.23 1.80 - 7.70 K/uL 04/19/2024 6:14 PM EST [facility] Absolute Lymphocytes 2.44 1.00 - 4.80 K/ul 04/19/2024 6:14 PM EST [facility] Absolute Monocytes 0.54 0.00 - 1.10 K/uL 04/19/2024 6:14 PM EST [facility] Absolute Eosinophils 0.13 0.00 - 0.70 K/uL 04/19/2024 6:14 PM EST [facility] Absolute Basophils 0.02 0.00 - 0.20 K/uL 04/19/2024 6:14 PM EST [facility] Blood Venous blood specimen / Unknown Venipuncture / Unknown 04/19/2024 6:02 PM EST 04/19/2024 6:10 PM EST David Ch MD LAB BLOOD ORDERABLES Fin al Result Performing Organization Address [facility]/State/[facility] Co de Phone Number LABORATORY [address] [address] * (ABNORMAL) CBC (04/19/2024 6:02 PM EST) [facility] WBC 7.36 4.00 - 10.80 K/uL 04/19/2024 6:14 PM EST [facility] RBC 5.09 4.50 - 5.25 M/uL 04/19/2024 6:14 PM EST [facility] HGB 17.7(H) 14.0 - 16.8 g/dL 04/19/2024 6:14 PM EST [facility] HCT 51.1(H) 40.0 - 48.4 % 04/19/2024 6:14 PM EST [facility] MCV 100.4 82.0 - 99.5 fL 04/19/2024 6:14 PM EST [facility] MCH 34.8 27.0 - 34.0 pg 04/19/2024 6:14 PM EST [facility] MCHC 34.6 32.0 - 36.0 g/dL 04/19/2024 6:14 PM EST [facility] RDW 12.5 11.5 - 15.5 % 04/19/2024 6:14 PM EST [facility] PLT 165 140 - 400 K/uL 04/19/2024 6:14 PM EST [facility] MPV 10.0 6.6 - 11.1 fL 04/19/2024 6:14 PM EST [facility] Blood Venous blood specimen / Unknown Venipuncture / Unknown 04/19/2024 6:02 PM EST 04/19/2024 6:10 PM EST David Ch MD LAB BLOOD ORDERABLES Fin al Result Performing Organization Address City/State/[facility] Co de Phone Number LABORATORY [place] [id number] [place] [address] * (ABNORMAL) BLOOD GAS, VENOUS (04/19/2024 6:02 PM EST) Temperature 37.0 C 04/19/2024 6:16 PM EST [facility] pH, Venous 7.374 7.320 - 7.430 units 04/19/2024 6:16 PM EST [facility] pCO2, Venous 48.6 40.0 - 60.0 mmHg 04/19/2024 6:16 PM EST [facility] pO2, Venous 55.6(H) 25.0 - 50.0 mmHg 04/19/2024 6:16 PM EST LAB[facility] Base Excess, Venous 1.9 -2.0 - 2.0 mmol/L 04/19/2024 6:16 PM EST [facility] HGB 18.3(H) 14.0 - 16.8 g/dL 04/19/2024 6:16 PM EST [facility] Oxyhemoglobin, Venous 88.1(H) 40.0 - 85.0 % total Hgb 04/19/2024 6:16 PM EST [facility] Carboxyhemoglobi n, Whole Blood 1.2 <=1.5 % total Hgb 04/19/2024 6:16 PM EST [facility] Comment:Smokers: 0-9.0 % Methemoglobin, Whole Blood 0.5 <=1.5 % total Hgb 04/19/2024 6:16 PM EST [facility] Reduced Hemoglobin, Venous 10.2 % total Hgb 04/19/2024 6:16 PM EST [facility] O2 Content, Venous 22.6(H) 7.0 - 18.0 %vol 04/19/2024 6:16 PM EST [facility] Bicarbonate, Whole Blood 28.3 23.0 - 31.0 mmol/L 04/19/2024 6:16 PM EST [facility] Blood Venous blood specimen / Unknown Venipuncture / Unknown 04/19/2024 6:02 PM EST 04/19/2024 6:10 PM EST us David Ch MD LAB BLOOD ORDERABLES Fin al Result Performing Organization Address City/[facility]/ZIP Co de Phone Number LABORATORY [address] [address] * TSH (04/19/2024 6:02 PM EST) Pathologist [facility] TSH 1.62 0.27 - 4.20 uIU/mL 04/19/2024 6:40 PM EST [facility] Blood Venous blood specimen / Unknown Venipuncture / Unknown 04/19/2024 6:02 PM EST 04/19/2024 6:10 PM EST David Ch MD LAB BLOOD ORDERABLES Fin al Result Performing Organization Address City/[facility]/ZIP Co de Phone Number LABORATORY [address] [address] * PT INR (04/19/2024 6:02 PM EST) Pathologist [facility] Prothrombin Time 12.3 11.6 - 15.2 seconds 04/19/2024 6:21 PM EST [facility] INR 0.9 0.8 - 1.2 04/19/2024 6:21 PM EST [facility] Blood Venous blood specimen / Unknown Venipuncture / Unknown 04/19/2024 6:02 PM EST 04/19/2024 6:10 PM EST Narrative [facility] - 04/19/2024 6:21 PM EST Warfarin Therapy INR: 2.0-3.0 conventional anticoagulation INR: 2.5-3.5 high intensity anticoagulation David Ch MD LAB BLOOD ORDERABLES Fin al Result Performing Organization Address City/[facility]/ZIP Co de Phone Number LABORATORY [address] [address] * LIPASE (04/19/2024 6:02 PM EST) Lipase 18 13 - 60 U/L 04/19/2024 6:34 PM EST [facility] Blood Venous blood specimen / Unknown Venipuncture / Unknown 04/19/2024 6:02 PM EST 04/19/2024 6:10 PM EST David Ch MD LAB BLOOD ORDERABLES Fin al Result Performing Organization Address [facility] Co de Phone Number LABORATORY [address] [address] * LACTATE, WHOLE BLOOD WITH REFLEX IF ABNORMAL (04/19/2024 6:02 PM EST) Lactate 1.9 0.4 - 2.0 mmol/L 04/19/2024 6:16 PM EST [facility] Blood Venous blood specimen / Unknown Venipuncture / Unknown 04/19/2024 6:02 PM EST 04/19/2024 6:10 PM EST David Ch MD LAB BLOOD ORDERABLES Fin al Result Performing Organization Address City/[facility]/ZIP Co de Phone Number LABORATORY [address] [address] * TROPONIN T, HIGH SENSITIVITY (04/19/2024 6:02 PM EST) [facility] Troponin T, High Sensitivity <6 <=22 ng/L 04/19/2024 6:34 PM EST [facility] Blood Venous blood specimen / Unknown Venipuncture / Unknown 04/19/2024 6:02 PM EST 04/19/2024 6:10 PM EST David Ch MD LAB BLOOD ORDERABLES Fin al Result Performing Organization Address [facility]/ZIP Co de Phone Number LABORATORY [address] [address] * BNP, NT-PRO (04/19/2024 6:02 PM EST) [facility] BNP, NT-Pro <50 <300 pg/mL 04/19/2024 6:40 PM EST [facility] Blood Venous blood specimen / Unknown Venipuncture / Unknown 04/19/2024 6:02 PM EST 04/19/2024 6:10 PM EST Narrative [facility] - 04/19/2024 6:40 PM EST Exclude Heart Failure: <300 pg/mL Diagnose Heart Failure: Age <50 yr: >450 pg/mL 50-75 yr: >900 pg/mL >75 yr: >1800 pg/mL GFR is 30-59 mL/min: >1200 pg/mL or Age-adjusted values GFR <30 mL/min: do not use, not reliable Prognostic threshold: 1000 pg/mL David Ch MD LAB BLOOD ORDERABLES Fin al Result Performing Organization Address City/[facility]/ZIP Co de Phone Number LABORATORY [address] [address] * (ABNORMAL) COMPREHENSIVE METABOLIC PANEL (04/19/2024 6:02 PM EST) [facility] BUN 16 6 - 20 mg/dL 04/19/2024 6:34 PM EST [facility] CREATININE 0.8 0.6 - 1.2 mg/dL 04/19/2024 6:34 PM EST [facility] EGFR >90 >=60 mL/min 04/19/2024 6:34 PM EST [facility] Comment:eGFR is calculated b ased on the CKD-EPI 2020 equation. SODIUM 133(L) 135 - 146 mmol/L 04/19/2024 6:34 PM EST [facility] POTASSIUM 4.0 3.5 - 5.1 mmol/L 04/19/2024 6:34 PM EST [facility] CHLORIDE 97(L) 98 - 107 mmol/L 04/19/2024 6:34 PM EST [facility] CO2 24 22 - 32 mmol/L 04/19/2024 6:34 PM EST [facility] ANION GAP 12 7 - 15 mmol/L 04/19/2024 6:34 PM EST [facility] GLUCOSE 312(H) 70 - 120 mg/dL 04/19/2024 6:34 PM EST [facility] Albumin 4.3 3.8 - 5.0 g/dL 04/19/2024 6:34 PM EST [facility] AST 19 10 - 50 U/L 04/19/2024 6:34 PM EST [facility] Alkaline Phosphatase 77 35 - 130 U/L 04/19/2024 6:34 PM EST [facility] Bilirubin, Total 0.2 <=1.2 mg/dL 04/19/2024 6:34 PM EST [facility] CALCIUM 9.1 8.4 - 10.2 mg/dL 04/19/2024 6:34 PM EST [facility] Protein 7.3 6.0 - 8.3 g/dL 04/19/2024 6:34 PM EST [facility] ALT 29 10 - 50 U/L 04/19/2024 6:34 PM EST [facility] Venous blood specimen / Unknown Venipuncture / Unknown 04/19/2024 6:02 PM EST 04/19/2024 6:10 PM EST us David Ch MD LAB BLOOD ORDERABLES Fin al Result [facility]ATORY [place] [address] [place] [address] * (ABNORMAL) GLUCOSE METER, POINT OF CARE (04/19/2024 5:56 PM EST) GLUCOSE - POCT 321(H) 70 - 120 mg/dL 04/19/2024 5:58 PM EST [facility] Blood Whole blood specimen / Unknown 04/19/2024 5:56 PM EST 04/19/2024 5:58 PM EST us No Physician Data Unknown LAB POINT OF C ARE TEST DOCKED DEVICE UNSOLICITED RESULTS Final Result LAB[facility]ATORY [place] [address] [place] [address] documented in this encounter Visit Diagnoses Diagnosis Vasovagal syncope- Primary Syncope and collapse Screening for cardiovascular condition Screening for other and unspecified cardiovascular conditions New onset type 2 diabetes mellitus (HCC) documented in this encounter Administered Medications Inactive Administered Medications - up to 3 most recent administrations Medication Order MAR Action Action Date Dose Rate Site Iopamidol (Isovue 370) inj 80 mL 80 mL, Intravenous, ONCE, On 04/19/24 at 1945, For 1 dose, Radiology Medication Routing (Non-IR) Given 04/19/2024 7:03 PM EST 80 mL NSS 0.9% 1,000 mL bolus infusion Peripheral IV, at 1,000 mL/hr Administer over 60 Minutes, Administer entire volume within 60 minutes or less., ONCE, 1 dose, On 04/19/24 at 1845 New Bag 04/19/2024 6:08 PM EST 1,000 mL 1000 mL/hr ondansetron (Zofran) inj 4 mg 4 mg, Intravenous, ONCE, On 04/19/24 at 1845, For 1 dose Given 04/19/2024 6:38 PM EST 4 mg Prochlorperazine (Compazine) inj 5 mg 5 mg, Intravenous, ONCE, On 04/19/24 at 2000, For 1 dose Given 04/19/2024 7:24 PM EST 5 mg documented in this encounter Active and Recently Administered Medications Times are shown in EST. Scheduled Medication Order 04/17/2024 04/18/2024 04/19/2024 Iopamidol (Isovue 370) inj 80 mL (COMPLETED) 80 mL, Intravenous, ONCE, On 04/19/24 at 1945, For 1 dose, Radiology Medication Routing (Non-IR) 1903 (Given - Provid er: Lydia Gottlieb, RT (R)) NSS 0.9% 1,000 mL bolus infusion (COMPLETED) Peripheral IV, at 1,000 mL/hr Administer over 60 Minutes, Administer entire volume within 60 minutes or less., ONCE, 1 dose, On 04/19/24 at 1845 1808 (New Bag - Prov ider: Ledy Mejía RN)1956 (Stopped - Provider: Ledy Mejía RN) ondansetron (Zofran) inj 4 mg (COMPLETED) 4 mg, Intravenous, ONCE, On 04/19/24 at 1845, For 1 dose 183 (Given - Provid er: Ledy Mejía RN) Prochlorperazine (Compazine) inj 5 mg (COMPLETED) 5 mg, Intravenous, ONCE, On 04/19/24 at 2000, For 1 dose 192 (Given - Provid er: Ledy Mejía RN) documented in this encounter Additional Health Concerns Infection Onset Date Last Indicated Resolved Time Respiratory Rule-Out 04/19/2024 04/19/2024 024 7:02 PM EST COVID-19 Rule-Out 04/19/2024 04/19/2024 04/19/2024 7:02 PM EST documented as of this encounter Care Teams Hotel [employer] Concierge Relationship Specialty Start Date End Date David Hand MD [address] [place] [address] PCP - General Internal Medicine 11/26/18 documented as of this encounter
--- OUTSIDE RECORDS SUMMARY | 2024-05-05 12:55 | External Medical Summary ---
Author Name Unknown Address Unknown Organization [id number]:LABORATORY [facility] - [address] [place] [id number] Laboratory Report Ordering Provider Test Date Status BRODERICK PITT 04/19/2024 20:24:58 Final Observation Date Value Abnormality Reference (Units ) Status Glucose Point of Care 04/19/2024 20:24:58 268 Above high normal 70-120 (mg/dL) Final Performing Location LABORATORY [facility] - [address] [facility] [address]
--- OUTSIDE RECORDS SUMMARY | 2024-05-05 12:56 | External Medical Summary ---
Author Name Unknown Address Unknown Organization K01:LABORATORY [facility] - [address] [facility] [address] Laboratory Report Ordering Provider Test Date Status MIRIAM SUAREZ 04/19/2024 18:02:31 Morro villalpando Observation Date Value Abnormality Reference (Units ) Status HbA1C 04/19/2024 18:02:31 8.5 Above high normal 4. 0-5.6 (%) Final The use of HbA1c to monitor glycemic status is based on normal hemoglobin and HbA composition. This test should not be used in patients with abnormal hemoglobin that affects the half life of the red blood cell or the in vivo glycation rates. Glucose, estimated average 04/19/2024 18:02:31 197 Above high normal <126 (mg/dL) Morro villalpando Performing Location LABORATORY [facility] - [address] [facility] [address]
--- OUTSIDE RECORDS SUMMARY | 2024-05-05 12:56 | External Medical Summary ---
Author Name Unknown Address Unknown Organization [id number]:LABORATORY [facility] - [address] [facility] [address] Laboratory Report Ordering Provider Test Date Status BRODERICK PITT 04/19/2024 18:02:31 Final Warfarin Therapy
INR: 2 .0-3.0 conventional anticoagulation
INR: 2.5- 3.5 high intensity anticoagulation Observation Date Value Abnormality Reference (Units ) Status PT 04/19/2024 18:02:31 12.3 11.6-15.2 (seconds) Final INR 04/19/2024 18:02:31 0.9 0.8-1.2 Final Performing Location LABORATORY [facility] - [address] [facility] [address]
--- OUTSIDE RECORDS SUMMARY | 2024-05-05 12:56 | External Medical Summary ---
Author Name Unknown Address Unknown Organization [id number]:LABORATORY [facility] - [address] [facility] [address] Laboratory Report Ordering Provider Test Date Status BRODERICK PITT 04/19/2024 18:02:31 Final Observation Date Value Abnormality Reference (Units ) Status Body temperature 04/19/2024 18:02:31 37.0 (C) Final pH of Venous blood 04/19/2024 18:02:31 7.374 7.320-7.430 (units) Final Carbon dioxide [Partial pressure] in Venous blood 04/19/2024 18:02:31 48.6 40.0-60.0 (mmHg) Final Oxygen [Partial pressure] in Venous blood 04/19/2024 18:02:31 55.6 Above high normal 25.0-50.0 (mmHg) Final Base excess, Capillary 04/19/2024 18:02:31 1.9 -2.0-2.0 (mmol/L) Final Hemoglobin [Mass/volume] in Blood by Oximetry 04/19/2024 18:02:31 18.3 Above high normal 14.0-16.8 (g/dL) Final Oxyhemoglobin, Venous (FO2HB) 04/19/2024 18:02:31 88.1 Above high normal 40.0-85.0 (% total Hgb) Final Carboxyhemoglobin 04/19/2024 18:02:31 1.2 <=1.5 (% total Hgb) Final Smokers: 0-9.0 % Methemoglobin 04/19/2024 18:02:31 0.5 <= 1.5 (% total Hgb) Final Deoxyhemoglobin/Hemoglo bin.total in Venous blood 04/19/2024 18:02:31 10.2 (% total Hgb) Final Oxygen content in Venous blood 04/19/2024 18:02:31 22.6 Above high normal 7.0-18.0 (%vol) Final Bicarbonate, Venous, POC (i-STAT) 04/19/2024 18:02:31 28.3 23.0-31.0 (mmol/L) Final Performing Location LABORATORY [facility] - [address] [facility] [address]
--- OUTSIDE RECORDS SUMMARY | 2024-05-05 12:56 | External Medical Summary ---
Author Name Unknown Address Unknown Organization K1G:LABORATORY [facility] - [address] [place] [id number] Laboratory Report Ordering Provider Test Date Status BRODERICK PITT 04/19/2024 18:02:31 Final Exclude Heart Failure: <300 pg/mL
Diagnose Heart Failure:
Age <50 yr: >450 pg/mL
50-75 yr: >900 pg/mL
>75 yr: >1800 pg/mL
GFR is 30-59 mL/min: >1200 pg/mL or Age- adjusted values
GFR <30 mL/min: do not use, not reliable

Prognostic threshold: 1000 pg/mL Observation Date Value Abnormality Reference (Units ) Status BNP, Pro-hormone 04/19/2024 18:02:31 <50 <30 0 (pg/mL) Final Performing Location LABORATORY [facility] - [address] [place] [phone]
--- OUTSIDE RECORDS SUMMARY | 2024-05-05 12:56 | External Medical Summary ---
Author Name Unknown Address Unknown Organization K1G:LABORATORY [facility] - [address] [place] [phone] Laboratory Report Ordering Provider Test Date Status BRODERICK PITT 04/19/2024 18:02:31 Final Observation Date Value Abnormality Reference (Units ) Status Lipase 04/19/2024 18:02:31 18 13-60 (U/L ) Final Performing Location LABORATORY [facility] - [facility] [phone]
--- OUTSIDE RECORDS SUMMARY | 2024-05-05 12:56 | External Medical Summary ---
Author Name Unknown Address Unknown Organization K1G:LABORATORY [facility] - [address] [place] [phone] Laboratory Report Ordering Provider Test Date Status BRODERICK PITT 04/19/2024 18:02:31 Final Observation Date Value Abnormality Reference (Units ) Status Troponin T 04/19/2024 18:02:31 <6 <=22 (ng/ L) Final Performing Location LABORATORY [facility] - [address] [place] [phone]
--- OUTSIDE RECORDS SUMMARY | 2024-05-05 12:56 | External Medical Summary ---
Author Name Unknown Address Unknown Organization K1G:LABORATORY [facility] - [address] [place] [phone] Laboratory Report Ordering Provider Test Date Status BRODERICK PITT 04/19/2024 18:02:31 Final Observation Date Value Abnormality Reference (Units ) Status SYNC LEUKOCYTES IN BLOOD BY AUTOMATED COUNT 04/19/2024 18:02:31 7.36 4.00-10.80 (K/uL) Final Segs 04/19/2024 18:02:31 57.4 40.0-75.0 (%) Final Lymphs % 04/19/2024 18:02:31 33.2 18.0-42.0 (%) Final Monos 04/19/2024 18:02:31 7.3 1.0-11.0 (%) Final Eosinophils 04/19/2024 18:02:31 1.8 0.0-6.0 (%) Final Basos 04/19/2024 18:02:31 0.3 0.0-2.0 (%) Final Absolute Segs 04/19/2024 18:02:31 4.23 1.80-7.70 (K/uL) Final Lymphs, absolute 04/19/2024 18:02:31 2.44 1.00-4.80 (K/ul) Final Monos, Abs 04/19/2024 18:02:31 0.54 0.00-1.10 (K/uL) Final Eos, Abs 04/19/2024 18:02:31 0.13 0.00-0.70 (K/uL) Final Basos, Abs 04/19/2024 18:02:31 0.02 0.00-0.20 (K/uL) Final Performing Location LABORATORY [facility] - [address] [facility] [phone]
--- OUTSIDE RECORDS SUMMARY | 2024-05-05 12:56 | External Medical Summary ---
Author Name Unknown Address Unknown Organization K1G:LABORATORY [facility] - [address] [place] [phone] Laboratory Report Ordering Provider Test Date Status NO,UNKNOWN 04/19/2024 17:56:39 Final Observation Date Value Abnormality Reference (Units ) Status Glucose Point of Care 04/19/2024 17:56:39 321 Above high normal 70-120 (mg/dL) Final Performing Location LABORATORY [facility] - [address] [facility] [address]
--- OUTSIDE RECORDS SUMMARY | 2024-05-05 12:56 | External Medical Summary ---
Author Name Unknown Address Unknown Organization K1G:LABORATORY [facility] - [address] [place] [phone] Laboratory Report Ordering Provider Test Date Status BRODERICK PITT 04/19/2024 18:02:31 Final Observation Date Value Abnormality Reference (Units ) Status Lactic Acid, Whole Blood 04/19/2024 18:02:31 1.9 0.4-2.0 (mmol/L) Final Performing Location LABORATORY [facility] - [address] [facility] [place] [phone]
--- OUTSIDE RECORDS SUMMARY | 2024-05-05 12:56 | External Medical Summary ---
Author Name Unknown Address Unknown Organization K1G:LABORATORY [facility] - [address] [place] [phone] Laboratory Report Ordering Provider Test Date Status BRODERICK PITT 04/19/2024 18:04:04 Final ADMITTED patient Observation Date Value Abnormality Reference (Units ) Status Adenovirus DNA [Presence] in Nasopharynx by DAVID with non-probe detection 04/19/2024 18:04:04 Negative Negative Final Human coronavirus 229E RNA [Presence] in Nasopharynx by DAVID with non-probe detection 04/19/2024 18:04:04 Negative Negative Final Human coronavirus HKU1 RNA [Presence] in Nasopharynx by DAVID with non-probe detection 04/19/2024 18:04:04 Negative Negative Final Human coronavirus NL63 RNA [Presence] in Nasopharynx by DAVID with non-probe detection 04/19/2024 18:04:04 Negative Negative Final Human coronavirus OC43 RNA [Presence] in Nasopharynx by DAVID with non-probe detection 04/19/2024 18:04:04 Negative Negative Final SARS-CoV-2 (COVID-19) RNA [Presence] in Nasopharynx by DAVID with non-probe detection 04/19/2024 18:04:04 Negative Negative Final Human metapneumovirus RNA [Presence] in Nasopharynx by DAVID with non-probe detection 04/19/2024 18:04:04 Negative Negative Final Rhinovirus+Enterovirus RNA [Presence] in Nasopharynx by DAVID with non-probe detection 04/19/2024 18:04:04 Negative Negative Final Influenza virus A RNA [Presence] in Nasopharynx by DAVID with non-probe detection 04/19/2024 18:04:04 Negative Negative Final Influenza virus B RNA [Presence] in Nasopharynx by DAVID with non-probe detection 04/19/2024 18:04:04 Negative Negative Final Parainfluenza virus 1 RNA [Presence] in Nasopharynx by DAVID with non-probe detection 04/19/2024 18:04:04 Negative Negative Final Parainfluenza virus 2 RNA [Presence] in Nasopharynx by DAVID with non-probe detection 04/19/2024 18:04:04 Negative Negative Final Parainfluenza virus 3 RNA [Presence] in Nasopharynx by DAVID with non-probe detection 04/19/2024 18:04:04 Negative Negative Final Parainfluenza virus 4 RNA [Presence] in Nasopharynx by DAVID with non-probe detection 04/19/2024 18:04:04 Negative Negative Final Respiratory syncytial virus RNA [Presence] in Nasopharynx by DAVID with non-probe detection 04/19/2024 18:04:04 Negative Negative Final Bordetella pertussis.pertussis toxin promoter region [Presence] in Nasopharynx by DAVID with non-probe detection 04/19/2024 18:04:04 Negative Negative Final Chlamydophila pneumoniae DNA [Presence] in Nasopharynx by DAVID with non-probe detection 04/19/2024 18:04:04 Negative Negative Final Mycoplasma pneumoniae DNA [Presence] in Nasopharynx by DAVID with non-probe detection 04/19/2024 18:04:04 Negative Negative Final Bordetella parapertussis [id number] DNA [Presence] in Nasopharynx by DAVID with non-probe detection 04/19/2024 18:04:04 Negative Negative Final The primers that detect Rhin ovirus may cross react with some Enterorviruses. The validation of bronchial specimens, tracheal aspirates, and throats for this assay was developed and performance characteristics determined by [employer]. The validation of alternate specimen types has not been cleared or approved by the U.S. Food and Drug Administration (FDA). It has been determined that such clearance or approval is not necessary. [facility] LABORATORY [facility] - [address] [facility] [phone]
--- OUTSIDE RECORDS SUMMARY | 2024-05-05 12:56 | External Medical Summary ---
Author Name Unknown Address Unknown Organization K1G:LABORATORY [facility] - [address] [facility] [phone] Laboratory Report Ordering Provider Test Date Status BRODERICK PITT 04/19/2024 18:02:31 Final Observation Date Value Abnormality Reference (Units ) Status BUN 04/19/2024 18:02:31 16 6-20 (mg/dL) Final Creatinine 04/19/2024 18:02:31 0.8 0.6-1.2 (mg/dL) Final Glomerular filtration rate/1.73 sq M.predicted [Volume Rate/Area] in Serum, Plasma or Blood by Creatinine-based formula (CKD-EPI) 04/19/2024 18:02:31 >90 >=60 (mL/min) Final eGFR is calculated based on the CKD-EPI 2020 equation. Sodium 04/19/2024 18:02:31 133 Below low normal 135 -146 (mmol/L) Final Potassium 04/19/2024 18:02:31 4.0 3.5-5.1 (m mol/L) Final Cl 04/19/2024 18:02:31 97 Below low normal 98- 107 (mmol/L) Final CO2 04/19/2024 18:02:31 24 22-32 (mmo l/L) Final Anion gap 04/19/2024 18:02:31 12 7-15 (mmol /L) Final Glucose 04/19/2024 18:02:31 312 Above high normal 70 -120 (mg/dL) Final Albumin 04/19/2024 18:02:31 4.3 3.8-5.0 (g /dL) Final AST (Aspartate aminotransferase) 04/19/2024 18:02:31 19 10-50 (U/L) Fin al Alk Phos 04/19/2024 18:02:31 77 35-130 (U/ L) Final Bilirubin, Total 04/19/2024 18:02:31 0.2 <=1 .2 (mg/dL) Final Calcium 04/19/2024 18:02:31 9.1 8.4-10.2 ( mg/dL) Final Protein 04/19/2024 18:02:31 7.3 6.0-8.3 (g /dL) Final ALT (Alanine aminotransferase) 04/19/2024 18:02:31 29 10-50 (U/L) Morro villalpando Performing Location LABORATORY [facility] - [address] [place] [phone]
--- OUTSIDE RECORDS SUMMARY | 2024-05-05 12:56 | External Medical Summary ---
Author Name Unknown Address Unknown Organization K1G:[facility] - [address] [facility] [phone] Laboratory Report Ordering Provider Test Date Status BRODERICK PITT 04/19/2024 18:39:44 Final Observation Date Value Abnormality Reference (Units ) Status Color of Urine by Auto 04/19/2024 18:39:44 Yellow Light Yellow, Yellow, Dark Yellow Final Clarity, Urine 04/19/2024 18:39:44 Clear Clear Final Glucose [Mass/volume] in Urine by Automated test strip 04/19/2024 18:39:44 >=1000 Abnormal Negative (mg/dL) Final Bilirubin.total [Presence] in Urine by Automated test strip 04/19/2024 18:39:44 Negative Negative Final Ketones [Mass/volume] in Urine by Automated test strip 04/19/2024 18:39:44 Trace Abnormal Negative (mg/dL) Final Specific gravity, Urine 04/19/2024 18:39:44 1.029 1.003-1.030 Final Hemoglobin [Presence] in Urine by Automated test strip 04/19/2024 18:39:44 Negative Negative Final pH, Urine 04/19/2024 18:39:44 7.0 5.0-7.5 (Units) Final Protein [Mass/volume] in Urine by Automated test strip 04/19/2024 18:39:44 100 Abnormal Negative (mg/dL) Final Urobilinogen [Mass/volume] in Urine by Automated test strip 04/19/2024 18:39:44 0.2 0.2, 1.0 (mg/dL) Final Nitrite [Presence] in Urine by Automated test strip 04/19/2024 18:39:44 Negative Negative Final Leukocyte esterase [Presence] in Urine by Automated test strip 04/19/2024 18:39:44 Negative Negative Final RBC, Urine 04/19/2024 18:39:44 0-2 0-2 (/HPF) Final WBC, Urine 04/19/2024 18:39:44 0-2 0-2 (/HPF) Final Bacteria [#/area] in Urine sediment by Microscopy high power field 04/19/2024 18:39:44 0-25 0-25 (/HPF) Final CULTURE, URINE - [facility] 04/19/2024 18:39:44 Final Culture not indicated by uri nalysis results\X09\ Performing Location LABORATORY [facility] - [address] [facility] [phone]
--- OUTSIDE RECORDS SUMMARY | 2024-05-05 12:56 | External Medical Summary ---
Author Name Unknown Address Unknown Organization K1G:LABORATORY [facility] - [address] [place] [phone] Laboratory Report Ordering Provider Test Date Status BRODERICK PITT 04/19/2024 18:02:31 Final Observation Date Value Abnormality Reference (Units ) Status TSH 04/19/2024 18:02:31 1.62 0.27-4.20 (uIU/mL) Final Performing Location LABORATORY [facility] - [facility] [phone]
--- OUTSIDE RECORDS SUMMARY | 2024-05-05 12:56 | External Medical Summary ---
Author Name Unknown Address Unknown Organization K1G:LABORATORY [facility] - [facility] [phone] Laboratory Report Ordering Provider Test Date Status BRODERICK PITT 04/19/2024 18:02:31 Final Observation Date Value Abnormality Reference (Units ) Status WBC, Total 04/19/2024 18:02:31 7.36 4.00-10.8 0 (K/uL) Final RBC 04/19/2024 18:02:31 5.09 4.50-5.25 (M/uL) Final Hemoglobin 04/19/2024 18:02:31 17.7 Above high normal 1 4.0-16.8 (g/dL) Final HCT 04/19/2024 18:02:31 51.1 Above high normal 40 .0-48.4 (%) Final MCV 04/19/2024 18:02:31 100.4 82.0-99.5 (fL) Final MCH 04/19/2024 18:02:31 34.8 27.0-34.0 (pg) Final MCHC 04/19/2024 18:02:31 34.6 32.0-36.0 (g/dL) Final RDW 04/19/2024 18:02:31 12.5 11.5-15.5 (%) Final Platelets 04/19/2024 18:02:31 165 140-400 (K /uL) Final MPV 04/19/2024 18:02:31 10.0 6.6-11.1 ( fL) Final Performing Location LABORATORY [facility] - [facility] [address] [facility] [phone]
[2024-05-05] MEDS: ROPIV 0.5% 246mg, Ketorolac 30mg, EPINEPHrine 0.5mg in NSS INFIL SCH (13:26)
--- NOTE | 2024-05-05 14:16 | Operative Report ---
PG Post Operative Report Pre & Post Diagnosis Operation Date: 05/05/24 11:00 Pre-Op Diagnosis: Osteoarthritis of right knee Post-Op Diagnosis: Osteoarthritis of right knee I identified the patient and participated in the time-out.: Yes Procedure Operation Date: 05/05/24 11:00 Actual Procedures p Right Total Knee Arthroplasty(Right) - Andi Milligan DO Surgeon Andi Milligan DO Wilderness Guide Jose Eduardo Luna PA-C Estimated Blood Loss 50 Findings Consistent with Post-Op Diagnosis Specimens Right femoral and tibial bone Description of Procedure Implants used: I used a [employer] total knee arthroplasty system with a size 10 femur, F tibia, 34 oval patella, and a size 11 medial congruent polyethylene bearing. All components were cemented in place with Biomet cement. Won mohamud [facility] for the above procedure. He was seen in the preoperative holding area and the operative extremity was identified and signed. He was given a preoperative antibiotic, TXA, a spinal anesthetic and an adductor nerve block. He was taken back to the operating room and laid on the table in supine position. He was given basic sedation. The operative knee was then prepped and draped in sterile fashion. A timeout was done, and the patient and the operative extremity was properly identified. A midline incision was made directly over the patella. Dissection was taken down to the extensor mechanism. A midvastus arthrotomy was used. The medial retinaculum was released and the fat pad was mostly excised. The knee was flexed and the ACL, PCL, and meniscus were removed. A drill was sent down the center of the femoral canal followed by an intramedullary christiano. Off that christiano a distal femoral cutting block was placed. 9 mm was resected off the distal femur at 5 of valgus. A posterior referencing AP sizing guide was then placed on the distal femur. The femur measured to be a size 10. 2 drill holes were placed in 3 of external rotation. A 4-in-1 cutting block was then impacted into place. Anterior, posterior, and chamfer cuts were then made. The proximal tibia was then exposed. An external tibial alignment guide was placed. A tibial cut guide was then anchored in place and the proximal tibia was then resected. The posterior aspect of the knee was then opened up and any additional meniscus fragments and osteophytes were removed. The tibia measured to be a size F. The tibial plate was then placed in the appropriate rotation and the tibia was drilled and punched. Trial components were then placed. I used a size 11 medial congruent polyethylene insert. The knee was brought through a full range of motion and felt to be stable. The peg holes for the femoral component were then drilled. The patella was then everted and 9 mm was resected off the posterior aspect of the patella. The patella measured to be a size 34 oval. 3 peg holes were then drilled. A trial patella was placed. The knee was once again brought through a full range of motion and felt to be stable. Trial components were then removed. The surrounding soft tissues were injected with 100 cc of an orthopedic pain control cocktail. All components were then cemented into place with Biomet cement. The final polyethylene insert was then snapped into place. Once cement was dry the tourniquet was deflated. Hemostasis was obtained. A dilute betadyne lavage was then done for 3 minutes. The joint was then irrigated with normal saline solution. The midvastus arthrotomy was then closed with #1 Vicryl suture. The skin was closed with 2-0 Vicryl, 3-0V lock suture, and price. A soft compressive dressing was placed. He was then transferred to a hospital bed and taken to the postanesthesia care unit in stable condition. He tolerated the procedure well. Jose Eduardo Luna PA-C, was present for the entire procedure. He was critical for patient positioning, prepping, draping, retraction exposure, wound closure and application of sterile dressing. I attest to the content of the Intraoperative Record and any orders documented therein. Any exceptions are noted below.
--- NOTE | 2024-05-05 15:24 | XRay Report ---
XR knee RT 1 or 2V routine CLINICAL HISTORY: Surgical Post Op COMPARISON: Right knee radiographs December 12, 2023. FINDINGS: Alignment of the total right knee arthroplasty is anatomic. There is no periprosthetic fra cture or unexpected radiopaque foreign body. There are skin price. IMPRESSION: Expected findings following total right knee arthroplasty. ACT 112: Negative or not required by law. Electronically signed by: Domenico oCrmier M.D. 05/05/2024 3:22 PM
--- NOTE | 2024-05-05 15:36 | Anesthesiology Progress Note ---
Date of Service May 05, 2024 Anesthesia Post Procedure Vital Signs Vital Signs: Temp Pulse Resp BP Pulse Ox O2 Del Method O2 Flow Rate 05/05/24 15:20 36.8 C 77 20 131/71 92 Room Air 0 05/05/24 15:10 77 14 127/66 98 Oxymask 4 05/05/24 15:00 76 15 116/65 98 Oxymask 8 05/05/24 14:50 77 13 134/74 98 Oxymask 8 05/05/24 14:41 36.9 C 84 24 133/75 97 Oxymask 8 05/05/24 10:12 36.9 C 88 20 157/83 H 95 Room Air Pain Intensity Right Knee: Pain Intensity: 0 Transfer of Care Handoff Completed per policy Notes Mental Status: alert / awake / arousable Patient Amnestic to Procedure: Yes Nausea / Vomiting: adequately controlled Pain: adequately controlled Airway Patency, RR, SpO2: stable & adequate BP & HR: stable & adequate Hydration State: stable & adequate Neuraxial Anesthesia: was administered and sensory block is resolving Anesthetic Complications: no major complications apparent and Pt Satisfied with anesthetic care
[2024-05-05] MEDS ORDERED: HYDROmorphone INJ 0.5 MG/0.5 ML SYR IV PRN (15:58)
[2024-05-05] MEDS ORDERED: FAMOTIDINE 20 MG TAB PO PRN (15:58)
[2024-05-05] MEDS ORDERED: METOCLOPRAMIDE HCL INJ 5 MG/ML 2 ML VIAL IV PRN (15:58)
[2024-05-05] MEDS ORDERED: NALOXONE HCL 0.4 MG/1 ML VIAL/CARP IV PRN (15:58)
[2024-05-05] MEDS ORDERED: bisacodyL 10 MG SUPP PR PRN (15:58)
[2024-05-05] MEDS ORDERED: oxyCODONE HCL IR 5 MG TAB (IMMEDIATE RELEASE) PO PRN (15:58)
[2024-05-05] MEDS ORDERED: MAGNESIUM HYDROXIDE SUSP 30 ML UDC PO PRN (15:58)
[2024-05-05] MEDS: TRANEXAMIC ACID 1,000 MG **IV Intra-op IV SCH (16:22)
[2024-05-05] MEDS: ORTHO JOINT ANESTHETIC ONE (16:22)
[2024-05-05] MEDS: KETOROLAC TROMETHAMINE 15 MG/ML VIAL IV SCH (16:28)
[2024-05-05] MEDS: traMADol HCL 50 MG TABLET PO PRN (19:59)
[2024-05-05] MEDS: ASPIRIN 81 MG ECTAB PO SCH (21:36)
[2024-05-05] MEDS: SENNA 8.6 MG TAB PO SCH (21:36)
[2024-05-05] MEDS: DOCUSATE SODIUM 100 MG CAP PO SCH (21:36)
[2024-05-05] MEDS: ceFAZolin 1000MG 1,000 MG/7.5 ML SYR IV SCH (21:36)
[2024-05-05] MEDS: CYPROHEPTADINE HCL 4 MG TAB PO SCH (22:21)
[2024-05-05 23:36] VITALS: TEMP 97.9
[2024-05-06 07:12] VITALS: BP 141/83; PULSE 81; RESP 20; O2SAT 97
[2024-05-06] MEDS: PANTOprazole 40 MG TAB PO SCH (07:37)
[2024-05-06] MEDS: dexAMETHasone 4 MG TAB PO SCH (08:26)
[2024-05-06] MEDS: MULTIVITAMIN TAB PO SCH (08:27)
--- NOTE | 2024-05-06 09:14 | Orthopedic Progress Note ---
Date of Service May 06, 2024 Assessment & Plan (1) Status post right knee replacement: Assessment: Status post right knee replacement. Plan: Overall, he is doing quite well today with good pain control right knee. He will work with physical therapy later this morning to work on ambulation and range of motion exercises. He may be discharged later this morning pending formal physical therapy evaluation and recommendations. He is on aspirin for DVT prophylaxis. Prescription sent to pharmacy. Dressings can be changed after physical therapy this morning and be replaced with an ABD held in place by a RICHY hose. He should continue restrictions to modify activities that bring on discomfort of the right knee. He was informed to continue with rest, ice, and elevation procedures were packable. He will follow-up with orthopedics in 2 weeks for postoperative management or sooner if needed. He verbalized understanding and agrees with this plan. Subjective . Won was seen and evaluated this morning resting comfortably in no apparent distress. He notes that his pain is well-controlled to his right knee. He has been up and ambulate with no significant issues. He has yet to work with physical therapy at this morning. He denies any concerns with surgical incision site. Denies any active bleeding, discharge, or signs of infection. He denies any other concerns today. Review of Systems All systems reviewed & are unremarkable except as noted in HPI & below. Physical Exam . On physical examination of the right knee, dressings are clean, dry, intact. There is no signs of active bleeding, discharge, or signs of infection. There is slight tenderness to palpation adjacent to the surgical incision. He is able to extend fully at the knee with limited range of motion secondary to postoperative stiffness and soreness. Calf soft nontender to palpation. Negative Homans' sign. Intact plantarflexion and dorsiflexion at the right ankle. +2 DP and PT pulse. Less than 2-second capillary refill. Normal sensation. Neurovascular intact. Results & Data Results & Data Laboratory Results . Diagnostic Findings . Knee X-Ray 05/05/24 14:44 XR knee RT 1 or 2V routine CLINICAL HISTORY: Surgical Post Op COMPARISON: Right knee radiographs December 12, 2023. FINDINGS: Alignment of the total right knee arthroplasty is anatomic. There is no periprosthetic fracture or unexpected radiopaque foreign body. There are skin price. IMPRESSION: Expected findings following total right knee arthroplasty. ACT 112: Negative or not required by law. Electronically signed by: Domenico Cormier M.D. 05/05/2024 3:22 PM PG Care Time/CCT Total # of Minutes Spent Total Time Spent with Patient: Total time spent is greater than 50% in coordination of care (as documented) at patient's floor/unit and/or counseling patient: Coding Level of Care Code 91989 Post Operative Follow-Up Diagnoses Status post right knee replacement Z96.651
--- NOTE | 2024-05-06 09:15 | Discharge Summary ---
Date of Service May 06, 2024 Admission HPI (Per Admitting) Won is a pleasant 73-year-old male who has been dealing with chronic increasing bilateral knee pain. 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 He saw another provider. He has x-rays and an MRI of his right knee. The x-rays did not look too bad, but the MRI did show some medial compartmental arthritis and a complex medial meniscus tear. After failed conservative treatment, he has elected to proceed with a right total knee arthroplasty. Admission Exam (Per Admitting) On physical exam of the right knee, he has good range of motion. He has pain of the distal medial femoral condyle and over the medial joint line. Principal Diagnosis Same as "Discharge Diagnosis" noted below under Discharge Instructions. Discharge Exam . On physical examination of the right knee, dressings are clean, dry, intact. There is no signs of active bleeding, discharge, or signs of infection. There is slight tenderness to palpation adjacent to the surgical incision. He is able to extend fully at the knee with limited range of motion secondary to postoperative stiffness and soreness. Calf soft nontender to palpation. Negative Homans' sign. Intact plantarflexion and dorsiflexion at the right ankle. +2 DP and PT pulse. Less than 2-second capillary refill. Normal sensation. Neurovascular intact. Discharge Data Procedures Performed Operation Date: 05/05/24 11:00 Actual Procedures p Right Total Knee Arthroplasty(Right) - Andi Milligan DO Ordered Studies 05/05/24 05:00 US - OR guided needle placemen Routine Hospital Course (1) Status post right knee replacement: On May 05, 2024 Won arrived at [facility] and underwent a right total knee arthroplasty performed by Dr. Milligan with no complications. He had a spinal anesthetic. Postoperatively, he was started on aspirin for DVT prophylaxis and transferred to the general orthopedic floor in stable condition. His hospital course was uneventful. On postoperative day #1, his vital signs were stable and his pain was well-controlled. He participated well with physical therapy working on ambulation and range of motion exercises. He was then discharged home in stable condition. He will follow-up with orthopedics in 2 weeks for postoperative management. PG Care Time/CCT Total # of Minutes Spent Total Time Spent with Patient: Total time spent is greater than 50% in coordination of care (as documented) at patient's floor/unit and/or counseling patient: Discharge Plan Discharge Items Patient Disposition: Home - Home Health Services Reason For Visit: Right Knee Arthritis Discharge Diagnosis: Status Post Right TKA Activity: Per Instructions section Non-emergency contact: Surgeon Call non-emergency contact if: your temperature is above 101.5, your wound has increased redness, your wound has increased drainage and your wound pain has increased Follow-up/Referrals: David Hand M.D. [Primary Care Provider] - Diet: Regular Addtl Attending Provider Instructions: Activity and Therapy Recommendations: * If you are using [facility] then therapy will be provided at your home until they feel you have accomplished all of your goals. * If you are using [facility] then Physical Therapy will be provided until they feel you are ready to start Outpatient Physical Therapy. * If you are not using home therapy then Outpatient Physical Therapy should start about 3-5 days from your day of surgery. Therapy will last about 6-10 weeks * It is important not to put a pillow under your knee when you are relaxing or sleeping. It is just as important to make sure you are getting your knee perfectly straight as it is to regain your knee bend. * You were shown a series of exercises in the hospital. Do these exercises three times each day including the exercises you were shown in physical therapy. * Get up and walk several times each day. For the first four weeks, try not to stand or walk for more than one hour at a time. If you do stand or walk for more than one hour, you will not hurt anything, but your leg will likely swell. * As you feel comfortable, you may change from the walker or crutches to a cane and then to independent walking. Medications: * Narcotic You will likely be sent home from the hospital with a prescription for the narcotic pain medication that worked best throughout your stay. * Cefadroxil -take the antibiotic twice a day for 10 days to help prevent infection. * Aspirin Most patients will be required to take Aspirin 81mg twice a day for 6 weeks after surgery. This is obtained [id number] and a prescription is not necessary. * Other medications may be prescribed for specific circumstances. If you have any questions, please call the office at . * Resume previous home medications unless otherwise instructed TEDs/Elastic Stockings: The white elastic stockings help limit swelling and prevent blood clots from forming in your legs.~ The more you wear them, the more they work. Wear them for six weeks. Dressing Care: The dressing can be changed after physical therapy on postop day #1. Daily dry dressing changes for a few days, especially if the incision is still draining some. If the incision is not draining then you may leave the price open to air. If there is a little bit of drainage or if the price are getting stuck on your clothing then cover the incision with a dry dressing. The price will be removed at your 2 week follow-up appointment. Showering: You may shower 5 days from the day of surgery as long as the incision is no long er draining. You may shower with the price exposed. Let soapy water run over the price and pat them dry. Do not scrub or soak the incision. Diet: You may resume your previous diet. Things To Watch For: * Drainage from the incision site that occurs more than one week after your surgery. * Increased redness at the incision site. * Fever above 102 degrees Fahrenheit. * Unusual chest pain or shortness of breath. * Call [facility] at with any of the above problems Follow-Up Visit: Follow-up with Dr. Milligan's office 2-3 weeks after your day of surgery. We will remove your price and answer any questions. If you have any additional questions or concerns, Dr Milligan is usually in the office at the same time and will be available An appointment was probably scheduled when you signed-up for surgery in the office. If you have any questions call Office Instructions: More detailed instructions as well as Frequently Asked Questions were provided in a folder by our office when you signed-up for surgery. Please review these instructions when you get home. If you have any further questions or concerns, please feel free to call the office at [phone] Pending Studies at Discharge: No Stand-Alone Forms: [facility] [employer], Smoking Cessation Medications and DC Order Prescriptions: New aspirin 81 mg Tablet,Delayed Release (Dr/Ec) 81 mg PO BID 42 Days Qty: 84 0RF tramadol 50 mg Tablet 50 mg PO Q6H PRN (Reason: pain) Qty: 30 0RF cefadroxil 500 mg capsule 500 mg PO BID 10 Days Qty: 20 0RF Continued omeprazole 40 mg Capsule,Delayed Release(Dr/Ec) 40 mg PO DAILY cyproheptadine 4 mg Tablet 4 mg PO BID omega 9-sxl-[id number]-fish oil [Fish Oil] 1,200 (144-216) mg Capsule 1 cap PO BID Macular Health Formula 5-1-7.5 mg Capsule 1 cap PO DAILY Testosterone Injection See Rx Instructions .ROUTE .COMPLEX Rx Instructions: 1 dose injection Q3WKS Vitamin A + D3 + K2 1 cap PO DAILY magnesium glycinate 1 cap PO BID vitamin E 1 cap PO DAILY acetaminophen [Tylenol Ex Str Arthritis Pain] 500 mg Tablet 1,000 mg PO Q6H PRN (Reason: Pain) famotidine 20 mg Tablet 20 mg PO DAILY PRN (Reason: reflux) Held ibuprofen 200 mg Tablet 600 mg PO Q6H PRN (Reason: Pain) Hold Instructions: Resume on 06/17/24. Admission Data Admit Date/Time: 05/05/24 14:44 Attending Provider: Andi Milligan Admit Provider: Andi Milligan Primary Care Provider: David Hand
== END 2024-05-06 10:41 | disposition home health service (06) ==
LOC: ASU 09:18 → 3E 09:18